=== PATIENT | female | born 1990 | race Caucasian/White ===

== ENCOUNTER → 2017-02-26 | Outpatient (CLI) | payer MEDICAID ==
--- NOTE | 2017-02-26 15:43 | RAD ---
EXAM: Obstetric ultrasound. HISTORY: Surveillance normal . COMPARISON: None. FINDINGS: Sonographic evaluation of the pelvis and fetus was performed transabdominally. There is a single fetus in transverse presentation. Estimated gestational age based on measurements is 18 weeks 4 days. Estimated weight is 249 g. heart rate is 141 bpm. The cervix is closed and measures 5.8 cm. The placenta appears posterior and fundal. Amniotic fluid index is 12.7 cm. extremities appear normal. The cord is three-vessel. The cord insertion appears normal. The stomach and bladder are visualized. Images of the spine reveal no clear defects. Intracranial images reveal no hydrocephalus. The kidneys demonstrate no hydronephrosis. The heart is four-chamber. The profile appears normal. IMPRESSION: 1. Single fetus in transverse presentation. Estimated gestational age 18 weeks 4 days. heart rate 141 bpm.
== END | disposition home or self-care (01) ==
LOC: US 10:55
PROVIDERS: ATTEND Advanced Practice Midwife
DX: Z34.92 Encounter for supervision of normal pregnancy, unspecified, second trimester (principal); Z3A.18 18 weeks gestation of pregnancy
CPT/HCPCS: 76805